=== PATIENT | female | born 1935 | race Caucasian/White ===

== ENCOUNTER 2019-10-12 05:01 | Inpatient (IN) | payer OTHER ==
[2019-10-12 07:05] VITALS: BMI 28.3
[2019-10-12] MEDS ORDERED: methylPREDNISolone ACET (DEPO) 40 MG/1 ML VIAL ONE (07:33)
[2019-10-12] MEDS ORDERED: BACITRACIN 15 GM TUBE TOPICAL OINTMENT ONE ×2 (07:34→07:53)
[2019-10-12] MEDS ORDERED: MIDAZOLAM HCL 2 MG/2 ML SINGLE DOSE VIAL ONE (08:03)
[2019-10-12] MEDS ORDERED: SUCCINYLCHOLINE CHLORIDE 200 MG/10 ML SYRINGE ONE (08:04)
[2019-10-12] MEDS ORDERED: PROPOFOL 20 ML ONE ×6 (08:04→10:58)
[2019-10-12] MEDS ORDERED: fentaNYL CITRATE 250 MCG/5 ML VIAL ONE (09:26)
[2019-10-12] MEDS ORDERED: ROCURONIUM BROMIDE 50 MG/5 ML SYRINGE ONE (09:33)
[2019-10-12] MEDS ORDERED: BENZOIN/ALOE VERA/STORAX/TOLU 58 ML BOTTLE ONE (09:45)
[2019-10-12] MEDS ORDERED: ceFAZolin SODIUM 1 GM VIAL IVPB ONE (09:50)
[2019-10-12] MEDS ORDERED: BACITRACIN 50,000 UNITS VIAL TP ONE (10:24)
[2019-10-12] MEDS ORDERED: THROMBIN (BOVINE) 5,000 UNIT VIAL TP ONE (10:24)
--- NOTE | 2019-10-12 11:49 | OP ---
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, spondylosis, marked steonsis, cord compression, myelomalacia Operation: Greg miranda; ant cerivcal discectomy, partial C4 and C5 corpectomies, resection of anterior and posterior osteophytes, interbody fusion, 6 mm intervertebral device (Jayashree), ant instrumentation C4-5 with [employer] 22 mm plate and 16 mm variable angle screws Findings: HNP; large bridging osteophytes; sensitive roots Attenuated baseline SSEP signal L LE > UE Implants: Jayashree 6 mm kyphotic implant; Aleksey spine 22 mm trinica select plate and 16 mm variable angle screws x4 Post-Operative Diagnosis: Same as Pre-op Surgeon: Brenton Mitchell Gun Numberer: Rody Weiner Anesthesiologist/TRANSFER STATION ATTENDANT: Yodit Kitchen MD Anesthesia: General Specimens Removed: C4-5 DD Estimated Blood Loss (mls): 25 Operative Report Dictated: Yes
[2019-10-12] MEDS ORDERED: ONDANSETRON 4 MG/2 ML VIAL IVPUSH PRN ×2 (11:50→12:36)
[2019-10-12] MEDS ORDERED: oxyCODONE HCL 5 MG TABLET PO PRN (11:50)
[2019-10-12] MEDS ORDERED: MORPHINE SULFATE 2 MG/ML VIAL IVPUSH PRN (11:52)
[2019-10-12] MEDS ORDERED: BACITRACIN 15 GM TUBE TOPICAL OINTMENT TP ONE (12:00)
--- NOTE | 2019-10-12 12:23 | PN ---
Progress Note (short form) - Note Progress Note: NEUROSURGERY In PACU AF, VSS; O2 sat 100% PE: CV- RR; Neck- dressing intact; Lungs- CTA B; Abd- benign; Ex- R arm dressing intact, some ecchymosis Motor- 4-/5 on L LE, 4/5 L UE, 4+/5 on R; Sensation- intact LT Adv diet this afternoon to clears C spine x-rays in AM PT in am Pain med prn Valium for muscle relaxation Findings and pt condition d/w daughter Pearl by phone per pt request
[2019-10-12] MEDS ORDERED: LACTATED RINGERS SOLUTION 1,000 ML IV SCH (12:45)
[2019-10-12] MEDS ORDERED: SODIUM BICARBONATE 8.4% - 50 ML ONE ×2 (12:52→12:53)
[2019-10-12] MEDS: hydrALAZINE HCL 20 MG/ML VIAL IVPUSH ONE ×2 (13:10→21:37)
[2019-10-12] MEDS: ACETAMINOPHEN 1000 MG/100 ML VIAL (NON FORMULARY) IVPB ONE (13:25)
[2019-10-12] MEDS: D5-1/2NS+20 MEQ KCL - 20 MEQ/1,000 ML INFUS.BAG IV SCH (15:51)
[2019-10-12] MEDS ORDERED: ceFAZolin SODIUM 1 GM VIAL ONE (16:41)
--- NOTE | 2019-10-12 18:12 | SURG ---
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 For further detail, please refer to operative report. Visit type - Case Type Case Type: Scheduled - Emergency Emergency Visit: No - New patient This patient is new to me today: Yes Date on this admission: 10/12/19
[2019-10-12] MEDS ORDERED: MORPHINE SULFATE 2 MG/ML VIAL ONE (18:55)
[2019-10-12] MEDS: DOCUSATE SODIUM 100 MG CAPSULE (FP) PO SCH (21:35)
[2019-10-12] MEDS: diazePAM 5 MG TABLET PO SCH (21:35)
[2019-10-12] MEDS: ROSUVASTATIN CA 5 MG TABLET (FP) PO SCH (21:35)
[2019-10-12] MEDS: CEFAZOLIN 1 GM in DEXTROSE 5%-WATER - 50 ML IVPB SCH (21:35)
[2019-10-13] MEDS ORDERED: ceFAZolin SODIUM 1 GM VIAL ONE (01:41)
[2019-10-13] MEDS ORDERED: DEXTROSE 5%-WATER - 50 ML IVPB ONE (01:41)
[2019-10-13] MEDS: D5-1/2NS+20 MEQ KCL - 20 MEQ/1,000 ML INFUS.BAG IV SCH ×2 (02:10→21:58)
[2019-10-13] MEDS: CEFAZOLIN 1 GM in DEXTROSE 5%-WATER - 50 ML IVPB SCH (02:14)
[2019-10-13] MEDS: DOCUSATE SODIUM 100 MG CAPSULE (FP) PO SCH ×4 (02:59→21:58)
[2019-10-13] MEDS: ACETAMINOPHEN 1000 MG/100 ML VIAL (NON FORMULARY) IVPB ONE (02:59)
[2019-10-13] MEDS: diazePAM 5 MG TABLET PO SCH ×4 (02:59→21:58)
--- NOTE | 2019-10-13 08:16 | PN ---
Progress Note (short form) - Note Progress Note: NEUROSURGERY POD #1 Incisional pain Mild sore throat Tmax 98.5, AF, VSS; O2 sat 98% PE: CV- RR; Neck- dressing intact; Lungs- CTA B; Abd- benign; Ex- R arm dressing intact, some ecchymosis Motor- 4-/5 on L LE, 4/5 L UE, 4+/5 on R; Sensation- intact LT Adv diet C spine x-rays - good positions of C4-5 implant, prevertebral edema as expected PT Pain med prn Valium for muscle relaxation Decadron x1 Findings and pt condition d/w daughter Pearl by phone yesterday Plan d/c with VNS tomorrow
[2019-10-13] MEDS ORDERED: DEXAMETHASONE SOD PHOSPHATE 4 MG/1 ML VIAL IVPUSH ONE (11:00)
--- NOTE | 2019-10-13 11:40 | OP ---
DATE OF OPERATION: 10/12/2019 PREOPERATIVE DIAGNOSES: 1. Extensive cervical spondylosis with degenerative disk disease, including large disk herniation, osteophytes at C5-C6 with severe spinal cord impingement and cervical myelopathy. 2. Myelomalacia of the spinal cord at C6. POSTOPERATIVE DIAGNOSES: 1. Extensive cervical spondylosis with degenerative disk disease, including large disk herniation, osteophytes at C5-C6 with severe spinal cord impingement and cervical myelopathy. 2. Myelomalacia of the spinal cord at C6. ATTENDING SURGEON: Brenton Mitchell MD WEB SOFTWARE ENGINEER: DEANA Maloney ANESTHESIA: General endotracheal. ANESTHESIOLOGIST: Yodit Kitchen MD ESTIMATED BLOOD LOSS: 25 mL. PROCEDURE: 1. Preoperative placement of postoperative neurocranial traction tongs for intraoperative traction. 2. Anterior cervical microdiskectomy C4-C5. 3. Anterior cervical partial corpectomy C4-C5 for decompression of spinal cord and proximal cervical roots at C4-C5 (6308). 4. Microsurgical dissection with operative microscope with microsurgical technique. 5. Anterior cervical interbody fusion C4-C5. 6. Utilization of intervertebral 6-mm lordotic device from [employer]. 7. Anterior cervical instrumentation at C4-C5 with Aleksey SPY, Trinica Select 22-mm titanium plate and 16-mm variable angle screws. FINDINGS: 1. Large bridging anterior and posterior osteophytes at C4-C5. 2. Severe degenerative disk space narrowing with near complete collapse of disk space at C4-C5. 3. Large disk protrusion posteriorly with associated osteophyte and spinal cord impingement, left greater than right, at C4-C5. 4. Extensive cervical roots. INDICATION: The patient is an 84-year-old female with history of cervical disk herniation, cervical stenosis, and cervical myelopathy. She has balance problems which have worsened through the years. She was found on the MRI to have cervical myelomalacia of the spinal cord and marked stenosis for several years, and she has delayed her surgical treatment until recently. The risks of procedure include but are not limited to bleeding, infection, dural tear with CSF leak, paralysis, hoarseness, swallowing difficulties, risks of general anesthesia. Patient understands the indication for the procedure, procedure in detail, risks and benefits, as well as alternatives for treatment of her cervical spine condition and wishes to proceed with surgery. No guarantee was given for a favorable outcome. Intraoperative SSEP, EMG, MEP, and recurrent laryngeal nerve EMG monitoring were carried out. PROCEDURE IN DETAIL: The patient was taken to the operating room. She was placed in supine position. After general anesthesia was induced and appropriate lines were placed, the head was secured in a Beltran horseshoe in the neutral position. The cranial traction tongs were placed with Bacitracin ointment. No traction weight was placed until decompression started much later on. At this point the shoulders were taped down at the sides and the anterior cervical region cleaned with alcohol and prepped with Betadine. A 1-1/4-inch incision was opened. Skin was undermined with Metzenbaum scissors. A self-retaining retractor was inserted. Platysma muscle was split longitudinally with Metzenbaum scissors. Dissection then proceeded medially to the carotid sheath and lateral to the trachea and esophagus. Prevertebral fascia was skeletonized and was cleaned with Kittners. The bridging anterior osteophytes were noted. Spinal needle was inserted into the C4-C5 disk space, which was extremely difficult to do because of the severe collapse of the disk space, which was nearly complete. After position was verified on x-ray, the disk annulus was incised with a No. 15 blade and a large bridging osteophyte anteriorly was burred down with high-speed pneumatic drill. This was after insertion of a radiolucent retractor system after longus colli muscle was reflected laterally. The disk material was removed with a combination of pituitary rongeur, Kerrison rongeur, as well as curets. A microscope was brought in at this point for both illumination and magnification. Microsurgical techniques were utilized. High-speed pneumatic drill was used to complete a partial corpectomy in the bottom of vertebral body at C4 and top of vertebral body at C5. This was extremely difficult because of significantly collapsed disk space. Antibiotic irrigation was given. The posterior longitudinal ligament was dissected with angled curet, resected with Kerrison rongeur. The disk material was removed with angled curet and Kerrison rongeur as well. The nerve root was quite sensitive to nearby bipolar electrocautery stimulation. Bilateral foraminotomy was carried out at C4-C5 bilaterally with the obturator bur and the posterior osteophytes were burred down with high-speed pneumatic drill. Traction was slowly increased, first to 5 pounds and then 10 pounds at this point. The AP diameter of the disk space was approximately 17 mm, even after the osteophytes being taken down. The height was about 6 mm. A 6-mm interbody implant from [employer] was inserted and countersunk by 2 mm. A 22-mm Trinica Select titanium plate from [employer] was secured with fixation pins, and screw holes were hand drilled with a hand drill guide. Variable angle screws, 16 mm, were used bilaterally at C4 and C5. A final cervical spine x-ray demonstrated excellent position of the implants. The C4 vertebral body was quite wedged in appearance, which is likely degenerative, but the patient might have had a chronic compression fracture some time ago. The locking mechanisms on the plate and screws were engaged. The wound was once again irrigated by antibiotic irrigation, and the self-retaining retractor was removed. A piece of Surgicel was laid on top of the plating system as well as the dissection tract. Platysma muscle was approximated with 3-0 Vicryl suture, as was the subcutaneous fascia. Skin was closed with 4-0 Vicryl running subcuticular suture. Steri-Strips and surgical dressing were applied. The patient tolerated the procedure well and was extubated in the operating room. SSEP and EMG signals remained stable throughout. The patient did have attenuated left lower extremity greater than left upper extremity EMG signal issues even at baseline. The patient received 1 dose of 2 g Ancef prior to incision. Normal OR timeout procedure was followed. The patient was examined in the recovery room after extubation, and her examination remained stable. The intraoperative findings as well as patient's postoperative condition were communicated with the daughter by telephone per the patient's request. Sary [id number] MTDD
--- NOTE | 2019-10-13 12:26 | PATH ---
Surgical Pathology Report Patient Name: ELVIA ELKINS Med. Rec. #: [id number] /Age/Gender: 1935 (Age: 84) / F Account: [id number] Location: [facility] MED/SURG Taken: 10/12/2019 Received: 10/12/2019 Reported: 10/13/2019 Physicians: Brenton Mitchell M.D. Specimen(s) Received C4-5 DISC Clinical History Spondylosis with myelopathy Final Diagnosis C4-C5 DISC, DISCECTOMY: PORTIONS OF FIBROCARTILAGINOUS TISSUE WITH FOCAL DEGENERATIVE CHANGE. Electronically Signed Blanco Lynn M.D. Gross Description Received in formalin labeled "C4-C5 disc," is a 1.7 x 1.4 x 0.3 cm aggregate of steele fragments of fibrocartilaginous tissue. The formalin is filtered and the specimen is entirely submitted in one cassette. /10/12/2019 saudi/10/12/2019
--- NOTE | 2019-10-13 16:19 | PN ---
Progress Note, Physician Chief Complaint: s.p CSpine surgery; occ pain, walked OOB still arms numbness no CP SOB events meds notes tests reviewed - Current Medication List Current Medications: Active Medications Diazepam (Valium -) 5 mg PO TID [facility], [facility]1983 Last Admin: 10/13/19 13:10 Dose: 5 mg Documented by: Docusate Sodium (Colace -) 100 mg PO TID [facility], [facility]1983 Last Admin: 10/13/19 13:11 Dose: 100 mg Documented by: Potassium Chloride/Dextrose/Sod Cl (D5-1/2ns+20 Meq Kcl -) 20 meq in 1,000 mls @ 100 mls/hr IV ASDIR [facility], [facility]1983 Last Admin: 10/13/19 02:10 Dose: 100 mls/hr Documented by: Morphine Sulfate (Morphine Sulfate) 1 mg IVPUSH Q3H PRN PRN Reason: PAIN LEVEL 7 - 10 Last Admin: 10/13/19 05:51 Dose: 1 mg Documented by: Ondansetron HCl (Zofran Injection) 4 mg IVPUSH Q6H PRN PRN Reason: NAUSEA AND/OR VOMITING Oxycodone HCl (Roxicodone -) 5 mg PO Q4H PRN PRN Reason: PAIN LEVEL 4 - 6 Last Admin: 10/13/19 02:10 Dose: 5 mg Documented by: Rosuvastatin Calcium (Crestor -) 5 mg PO [facility] Last Admin: 10/12/19 21:35 Dose: 5 mg Documented by: - Objective Vital Signs: Vital Signs Temperature 98.8 F 10/13/19 14:00 Pulse Rate 65 10/13/19 14:00 Respiratory Rate 20 10/13/19 14:00 Blood Pressure 102/35 L 10/13/19 14:00 O2 Sat by Pulse Oximetry (%) 98 10/13/19 09:00 Constitutional: Yes: No Distress, Calm Eyes: Yes: Conjunctiva Clear HENT: Yes: Atraumatic Neck: Yes: Supple, Other (s.p surgery collar) Cardiovascular: Yes: Regular Rate and Rhythm Respiratory: Yes: CTA Bilaterally Gastrointestinal: Yes: Soft. No: Tenderness Genitourinary: No: Hematuria Musculoskeletal: No: Joint Stiffness, Joint Swelling Extremities: No: Cold, Cool Edema: No Integumentary: No: Rash, Venous Stasis Changes Neurological: Yes: Alert, Oriented ...Motor Strength: WNL Psychiatric: Yes: Alert, Oriented. No: Agitated, Suicidal Ideation - ....Imaging Other: Report Reviewed Assessment/Plan 84 YOF s/p CSpine surgery spinal stenosis and neuropathy pain meds; DVT pfx falls PFX stools softeners prn; good po hydration outpt PT rehab f/u with PCP and NS in 1-2 weeks call us if any fever chills worse local pain cont meds as advised d/w pt and staff
[2019-10-13] MEDS: ROSUVASTATIN CA 5 MG TABLET (FP) PO SCH (21:59)
[2019-10-14] MEDS: diazePAM 5 MG TABLET PO SCH (05:52)
[2019-10-14] MEDS: DOCUSATE SODIUM 100 MG CAPSULE (FP) PO SCH (05:52)
[2019-10-14 10:45] VITALS: BP 125/55; PULSE 63; TEMP 98.5
--- NOTE | 2019-10-14 18:27 | PN ---
Progress Note (short form) - Note Progress Note: NEUROSURGERY POD #2 Seen at 0815 this morning Incisional pain Mild sore throat, better Tolerating food Voiding fine AF, VSS PE: CV- RR; Neck- dressing intact; Lungs- CTA B; Abd- benign; Ex- R arm dressing intact, some ecchymosis Motor- 4-/5 on L LE, 4/5 L UE, 4+/5 on R; Sensation- intact LT Adv diet C spine x-rays - good positions of C4-5 implant, prevertebral edema as expected PT Pain med prn Findings and pt condition d/w pt D/s instructions and wound care d/w pt (R arm and neck) F/u plan discussed VNS Updated PMD
== END 2019-10-14 12:18 | disposition home health service (06) | DRG 472 ==
LOC: J2C 05:01 → J8W 19:34
PROVIDERS: ADMIT Neurological Surgery; ATTEND Neurological Surgery
PROC: 0RB30ZZ Excision of Cervical Vertebral Disc, Open Approach (ICD-10-PCS; 2019-10-12)
PROC: 00NW0ZZ Release Cervical Spinal Cord, Open Approach (ICD-10-PCS; 2019-10-12)
PROC: 01N10ZZ Release Cervical Nerve, Open Approach (ICD-10-PCS; 2019-10-12)
PROC: 0RG10A0 Fusion of Cervical Vertebral Joint with Interbody Fusion Device, Anterior Approach, Anterior Column, Open Approach (ICD-10-PCS; principal; 2019-10-12 08:00)
DX: M47.22 Other spondylosis with radiculopathy, cervical region (principal); M50.021 Cervical disc disorder at C4-C5 level with myelopathy; M47.12 Other spondylosis with myelopathy, cervical region; M99.71 Connective tissue and disc stenosis of intervertebral foramina of cervical region
CPT/HCPCS: 72050-TC-FY; 86850; 86900; 86901; 88304-TC; 94760; 97116-GP; 97161-GP; J0131

== ENCOUNTER 2020-03-09 05:33 | Inpatient (IN) | payer OTHER ==
[2020-03-08 12:14] VITALS: BMI 27.8
[2020-03-09] MEDS ORDERED: ROCURONIUM BROMIDE 50 MG/5 ML SYRINGE ONE (09:26)
[2020-03-09] MEDS ORDERED: MIDAZOLAM HCL 2 MG/2 ML SINGLE DOSE VIAL ONE (09:27)
[2020-03-09] MEDS ORDERED: PROPOFOL 20 ML ONE (09:27)
[2020-03-09] MEDS ORDERED: ceFAZolin SODIUM 1 GM VIAL IVPB ONE (11:00)
[2020-03-09] MEDS ORDERED: BUPIVACAINE HCL/PF 0.5% (5 MG/ML) 30 ML VIAL IJ ONE (11:16)
[2020-03-09] MEDS ORDERED: THROMBIN (BOVINE) 5,000 UNIT VIAL TP ONE (11:16)
[2020-03-09] MEDS ORDERED: BACITRACIN 50,000 UNITS VIAL NR ONE (11:16)
[2020-03-09] MEDS ORDERED: ACETAMINOPHEN 325 MG TABLET (FP) PO PRN (13:19)
[2020-03-09] MEDS ORDERED: ONDANSETRON 4 MG/2 ML VIAL IVPUSH PRN ×2 (13:19→14:01)
[2020-03-09] MEDS ORDERED: BISACODYL 10 MG SUPP.RECT RC PRN (13:19)
[2020-03-09] MEDS ORDERED: D5-1/2NS+20 MEQ KCL - 1,000 ML IV SCH (13:30)
[2020-03-09] MEDS ORDERED: HYDROmorphone *PCA* 10MG/50ML DISP.SYRIN PCA SCH (14:15)
[2020-03-09] MEDS: D5-1/2NS+20 MEQ KCL - 20 MEQ/1,000 ML INFUS.BAG IV SCH (14:22)
[2020-03-09] MEDS ORDERED: HYDROmorphone *PCA* 10MG/50ML DISP.SYRIN ONE (15:02)
[2020-03-09 15:39] LABS: HEMATOCRIT 40.8 % (32.4-45.2); HEMOGLOBIN 13.3 GM/dL (10.7-15.3); MCH 30.5 pg (25.7-33.7); MCHC 32.7 g/dl (32.0-36.0); MEAN CELL VOLUME 93.3 fl (80-96); MEAN PLT VOLUME 8.6 fl (7.5-11.1); PLATELET COUNT 167 K/MM3 (134-434); RBC 4.38 M/mm3 (3.60-5.2); RDW 14.2 % (11.6-15.6); WHITE BLOOD COUNT 7.2 K/mm3 (4.0-10.0)
[2020-03-09 15:58] LABS: POTASSIUM 4.3 mmol/L (3.5-5.1)
[2020-03-09 16:00] LABS: BLOOD UREA NITROGEN 11.6 mg/dL (7-18); CALCIUM 8.7 mg/dL (8.5-10.1)
[2020-03-09 16:04] LABS: CREATININE 0.7 mg/dL (0.55-1.3)
[2020-03-09] MEDS ORDERED: ceFAZolin SODIUM 1 GM VIAL ONE (17:20)
[2020-03-09] MEDS ORDERED: CEFAZOLIN 1 GM/D5W 1 GM/50 ML BAG IVPB SCH (18:00)
[2020-03-09] MEDS: DOCUSATE SODIUM 100 MG CAPSULE (FP) PO SCH ×2 (21:12→22:44)
[2020-03-09] MEDS: diazePAM 5 MG TABLET PO SCH ×2 (21:12→22:33)
[2020-03-09] MEDS: LACTATED RINGERS SOLUTION 1,000 ML IV SCH (21:13)
[2020-03-10] MEDS ORDERED: ceFAZolin SODIUM 1 GM VIAL ONE ×2 (01:48→08:58)
[2020-03-10] MEDS ORDERED: DEXTROSE 5%-WATER - 50 ML IVPB ONE ×2 (01:48→08:58)
[2020-03-10] MEDS: CEFAZOLIN 1 GM in DEXTROSE 5%-WATER - 1 GM/50 ML IVPB IVPB SCH ×2 (01:52→09:07)
[2020-03-10] MEDS: DOCUSATE SODIUM 100 MG CAPSULE (FP) PO SCH ×3 (05:36→21:03)
[2020-03-10] MEDS: diazePAM 5 MG TABLET PO SCH ×3 (05:45→21:04)
[2020-03-10] MEDS: D5-1/2NS+20 MEQ KCL - 20 MEQ/1,000 ML INFUS.BAG IV SCH (13:32)
[2020-03-10] MEDS: LACTATED RINGERS SOLUTION 1,000 ML IV SCH (17:14)
[2020-03-10] MEDS: ROSUVASTATIN CA 5 MG TABLET (FP) PO SCH (21:04)
[2020-03-11] MEDS: DOCUSATE SODIUM 100 MG CAPSULE (FP) PO SCH ×3 (06:23→21:55)
[2020-03-11] MEDS: diazePAM 5 MG TABLET PO SCH ×3 (06:23→21:55)
[2020-03-11] MEDS ORDERED: PT OWN MED DRAWER 7, Y5N ONE (09:59)
[2020-03-11] MEDS: D5-1/2NS+20 MEQ KCL - 20 MEQ/1,000 ML INFUS.BAG IV SCH ×2 (12:06→13:36)
[2020-03-11] MEDS ORDERED: PCA PUMP NR ONE (16:13)
[2020-03-11] MEDS: LACTATED RINGERS SOLUTION 1,000 ML IV SCH (17:38)
[2020-03-11] MEDS: CEPHALEXIN MONOHYDRATE 500 MG CAPSULE (UD) PO SCH (18:37)
[2020-03-11] MEDS: ROSUVASTATIN CA 5 MG TABLET (FP) PO SCH (21:55)
[2020-03-11] MEDS: oxyCODONE HCL 5 MG TABLET PO PRN (21:55)
[2020-03-12] MEDS: CEPHALEXIN MONOHYDRATE 500 MG CAPSULE (UD) PO SCH ×4 (00:25→17:34)
[2020-03-12] MEDS: DOCUSATE SODIUM 100 MG CAPSULE (FP) PO SCH ×3 (06:05→22:03)
[2020-03-12] MEDS: diazePAM 5 MG TABLET PO SCH ×3 (06:06→22:03)
[2020-03-12 08:52] LABS: EPI CELLS 34 /uL (0-25.1); HYALINE CASTS 1 /uL (0-3.1); PH,URINE 6.5 (5.0-8.0); URINE APPEARANCE CLEAR; URINE BACTERIA 5 /uL (0-1359); URINE BILIRUBIN NEGATIVE (NEGATIVE); URINE COLOR YELLOW; URINE GLUCOSE (UA) NEGATIVE (NEGATIVE); URINE KETONE NEGATIVE (NEGATIVE); URINE LEUK ESTERASE TRACE (NEGATIVE); URINE NITRITE NEGATIVE (NEGATIVE); URINE PROTEIN NEGATIVE (NEGATIVE); URINE RBC 12 /uL (0-23.9); URINE WBC 17 /uL (0-25.8)
[2020-03-12] MEDS: oxyCODONE HCL 5 MG TABLET PO PRN (11:58)
[2020-03-12] MEDS: D5-1/2NS+20 MEQ KCL - 20 MEQ/1,000 ML INFUS.BAG IV SCH (13:07)
[2020-03-12] MEDS: LACTATED RINGERS SOLUTION 1,000 ML IV SCH (16:17)
[2020-03-12] MEDS: ROSUVASTATIN CA 5 MG TABLET (FP) PO SCH (22:03)
[2020-03-13] MEDS: CEPHALEXIN MONOHYDRATE 500 MG CAPSULE (UD) PO SCH ×4 (00:52→17:45)
[2020-03-13] MEDS: DOCUSATE SODIUM 100 MG CAPSULE (FP) PO SCH ×2 (05:35→15:13)
[2020-03-13] MEDS: diazePAM 5 MG TABLET PO SCH ×2 (05:35→15:13)
[2020-03-13 05:38] VITALS: TEMP 98.8
[2020-03-13] MEDS ORDERED: MAGNESIUM CITRATE 300 ML BOTTLE PO ONE (08:17)
[2020-03-13 08:18] LABS: BASO % 0.5 % (0-2.0); EOS % 2.1 % (0-4.5); LYMPH % 17.3 % (8-40); MCH 30.8 pg (25.7-33.7); MCHC 33.4 g/dl (32.0-36.0); MONO % 11.3 % (3.8-10.2); NEUT % 68.8 % (42.8-82.8); PLATELET COUNT 165 K/MM3 (134-434); RBC 3.59 M/mm3 (3.60-5.2); RDW 13.9 % (11.6-15.6); WHITE BLOOD COUNT 6.1 K/mm3 (4.0-10.0)
[2020-03-13] MEDS: D5-1/2NS+20 MEQ KCL - 20 MEQ/1,000 ML INFUS.BAG IV SCH (15:07)
[2020-03-13] MEDS: LACTATED RINGERS SOLUTION 1,000 ML IV SCH (15:08)
[2020-03-13 16:03] VITALS: BP 123/72; PULSE 73
== END 2020-03-13 18:52 | DRG 460 ==
LOC: J2C 05:33 → J8W 19:54
PROVIDERS: ADMIT Neurological Surgery; ATTEND Neurological Surgery
PROC: 00NY0ZZ Release Lumbar Spinal Cord, Open Approach (ICD-10-PCS; 2020-03-09)
PROC: 0SG1071 Fusion of 2 or more Lumbar Vertebral Joints with Autologous Tissue Substitute, Posterior Approach, Posterior Column, Open Approach (ICD-10-PCS; principal; 2020-03-09 10:15)
DX: M47.26 Other spondylosis with radiculopathy, lumbar region (principal); M48.061 Spinal stenosis, lumbar region without neurogenic claudication
CPT/HCPCS: 36415; 71045-TC-FY; 72100-TC-FY; 80048; 81003; 85025; 85027; 86850; 86900; 86901; 94760; 97116-GP; 97162-GP